=== PATIENT | male | born 1975 | race Caucasian/White ===

== ENCOUNTER 2019-06-07 09:16 | Emergency (ER) | payer SELFPAY ==
[~2019-06-07] VITALS: Ht 170.2 cm; Wt 65.9 kg
[2019-06-07 09:45] VITALS: BP 111/78; Ht 170.2 cm; Wt 65.9 kg
[2019-06-07] MEDS ORDERED: HYDROCODON-ACE1 EAC7 PO (10:53)
[2019-06-07] MEDS ORDERED: KEFLEX500 MG PO (10:53)
== END 2019-06-07 11:17 | disposition home or self-care (01) ==
LOC: D.ER 09:16
DX: L08.9 Local infection of the skin and subcutaneous tissue, unspecified (principal)